=== PATIENT | male | born 1970 | race Caucasian/White ===

== ENCOUNTER 2017-10-30 09:28 | Emergency (ER) | payer BC ==
[2017-10-30] MEDS: ONDANSETRON (ODT) 4 MG TAB ODT (10:09)
[2017-10-30] MEDS: ACETAMINOPHEN 325 MG TAB PO (10:10)
== END 2017-10-30 11:57 | disposition home or self-care (01) ==
LOC: FTE 09:28
DX: I10 Essential (primary) hypertension (principal)
CPT/HCPCS: 70450; 82962; 99284-25

== ENCOUNTER 2018-06-25 20:09 | Emergency (ER) | payer BC ==
[2018-06-25 22:39] LABS: ADD MAN DIFF? NO
[2018-06-25 22:41] LABS: BASOPHIL # 0.1 10^3/ul (0.0-0.1); BASOPHILS % 0.6 % (0.0-2.0); EOSINOPHILS # 0.1 10^3/ul (0.0-0.5); EOSINOPHILS % 1.5 % (0.0-7.0); HEMATOCRIT 42.1 % (42.0-52.0); HEMOGLOBIN 14.6 g/dl (14.0-18.0); LYMPHOCYTES # 3.2 10^3/ul (0.8-2.9); LYMPHOCYTES % 39.3 % (15.0-51.0); MEAN CORPUSCULAR HEMOGLOBIN 32.2 pg (29.0-33.0); MEAN CORPUSCULAR HGB CONC 34.7 g/dl (32.0-37.0); MEAN CORPUSCULAR VOLUME 92.9 fl (82.0-101.0); MEAN PLATELET VOLUME 11.2 fl (7.4-10.4); MONOCYTE # 0.5 10^3/ul (0.3-0.9); MONOCYTES % 6.1 % (0.0-11.0); NEUTROPHIL # 4.2 10^3/ul (1.6-7.5); PLATELET COUNT 174 10^3/UL (140-415); RED BLOOD COUNT 4.53 10^6/ul (4.70-6.10)
[2018-06-25] MEDS: KETOROLAC 30 MG INJ IV (22:57)
[2018-06-25 22:59] LABS: ANION GAP 14 (5-13); BLOOD UREA NITROGEN 18 mg/dl (7-20); CALCIUM 9.9 mg/dl (8.4-10.2); CARBON DIOXIDE 28 mmol/L (21-31); CHLORIDE 102 mmol/L (97-110); CREATININE 0.96 mg/dl (0.61-1.24); Estimated GFR > 60 mL/min (>60); GLUCOSE 103 mg/dl (70-220); POTASSIUM 3.9 mmol/L (3.5-5.1); SODIUM 144 mmol/L (135-144)
[2018-06-25 23:12] LABS: TROPONIN-I < 0.012 ng/ml (0.000-0.120)
== END 2018-06-26 00:44 | disposition home or self-care (01) ==
LOC: FTE 06-26 00:44
DX: S20.219A Contusion of unspecified front wall of thorax, initial encounter (principal); I10 Essential (primary) hypertension; X58.XXXA Exposure to other specified factors, initial encounter; Y92.9 Unspecified place or not applicable
CPT/HCPCS: 36415; 71045; 71100; 80048; 84484; 85025; 93005; 96372; 99285-25